=== PATIENT | male | born 1965 | race Caucasian/White ===

== ENCOUNTER 2016-06-05 14:06 | Observation (INO) | payer OTHER ==
[~2016-06-05] VITALS: Ht 170.2 cm; Wt 67.8 kg
[~2016-06-05 14:06] MED LIST: ASPI81TA81; AZEL1SPR2 EACH NARE; CALC600T10 PO; CARI350T20 PO; CITA10TA4 PO; CLON1TAB PO; ELVI1TAB3 PO; MELO-1 PO; MORP1TAB24 PO; MORP1TAB25 PO; REME15TA PO; SIMV40TA PO; TRIL135C PO
[2016-07-17] MEDS ORDERED: LACTATED RINGER'S 1000 ML IV SCH (06:45)
[2016-07-17] MEDS ORDERED: METOPROLOL TARTRATE 25 MG TAB PO PRN (06:45)
[2016-07-17] MEDS ORDERED: INSULIN HUMAN REGULAR 1,000 UNITS/10 ML VIAL SQ PRN (06:45)
[2016-07-17] MEDS ORDERED: SODIUM CHLORID 0.9% 500 ML IV SCH (06:45)
[2016-07-17 06:56] VITALS: BP 102/84; PULSE 89; RESP 20; TEMP 98.9; O2SAT 95
[2016-07-17] MEDS ORDERED: RESP: ALBUTEROL 2.5 MG/3 ML NEB (PRN) ONE (08:04)
[2016-07-17] MEDS ORDERED: MIDAZOLAM HCL 2 MG/2 ML VIAL ONE (08:43)
[2016-07-17] MEDS ORDERED: FAMOTIDINE 20 MG/2 ML VIAL ONE (08:43)
[2016-07-17] MEDS ORDERED: fentaNYL CITRATE 250 MCG/5 ML AMP ONE ×2 (08:43→16:45)
[2016-07-17] MEDS ORDERED: ARTIFICIAL TEARS OPTH OINT 3.5 APPLIC/3.5 GM TUBO ONE (08:43)
[2016-07-17] MEDS ORDERED: MICROFIBRILLAR COLLAGEN HEMOSTAT 70 X 35 MM BANDAGE ONE (08:52)
[2016-07-17] MEDS ORDERED: ceFAZolin 2 GM PREMIX 50 ML ONE (08:52)
[2016-07-17] MEDS ORDERED: VANCOMYCIN HCL 1000 MG VIAL ONE (08:52)
[2016-07-17] MEDS ORDERED: THROMBIN (TOPICAL) 5,000 UNIT VIAL ONE (08:52)
[2016-07-17] MEDS ORDERED: GELFOAM SIZE 100 ONE (08:52)
[2016-07-17] MEDS ORDERED: ACETAMINOPHEN 1000 MG/100 ML VIAL IV ONE (08:53)
[2016-07-17] MEDS ORDERED: SODIUM CHLOR 0.9% 250 ML INJ 250 ML ONE (08:53)
[2016-07-17] MEDS ORDERED: GENTAMICIN SULFATE 80 MG/2 ML VIAL ONE (08:53)
[2016-07-17] MEDS ORDERED: CYCLOBENZAPRINE HCL 10 MG TAB PO PRN (09:45)
[2016-07-17] MEDS ORDERED: ONDANSETRON HCL 4 MG/2 ML VIAL IV PRN (09:45)
[2016-07-17] MEDS ORDERED: MENTHOL LOZENGE SUCK-ON PRN (09:45)
[2016-07-17] MEDS ORDERED: BISACODYL 10 MG SUPP PR PRN (09:45)
[2016-07-17] MEDS ORDERED: SODIUM CHLORIDE 0.9% FLUSH 5 ML FLUSH IVF PRN (09:45)
[2016-07-17] MEDS ORDERED: CARISOPRODOL 350 MG TAB PO PRN (09:45)
[2016-07-17] MEDS ORDERED: ACETAMINOPHEN/HYDROcodone 325 MG/10 MG TAB PO PRN ×2 (09:45)
[2016-07-17] MEDS ORDERED: ACETAMINOPHEN 325 MG TAB PO PRN (09:45)
[2016-07-17] MEDS ORDERED: MORPHINE SULFATE 4 MG/ML INJ IV PUSH PRN ×2 (09:45)
[2016-07-17] MEDS ORDERED: *RESP: ALBUTEROL 2.5 MG/3 ML NEB (PRN) PERIprocedural Use ONLY NEB ONE (11:50)
--- NOTE | 2016-07-17 11:52 | RADRPT ---
EXAM DATE/TIME: 07/17/2016 09:17 [facility] COMPARISON: No previous studies available for comparison. INDICATIONS : Post-op C5-C6 disk arthroplasty. MEDICAL HISTORY : None. SURGICAL HISTORY : None. ENCOUNTER: Initial ACUITY: 1 day PAIN SCORE: Non-responsive. LOCATION: neck FINDINGS: Disc arthroplasty is present at the C5-C6 level. The vertebral bodies are normal in alignment on the lateral view. CONCLUSION: 1. Postsurgical changes as above. Ean Noland MD on July 17, 2016 at 11:50 Board Certified Radiologist. This report was verified electronically.
--- NOTE | 2016-07-17 11:52 | RADRPT ---
EXAM DATE/TIME: 07/17/2016 09:17 [facility] COMPARISON: No previous studies available for comparison. INDICATIONS : C5-C6 disk arthroplasty. Level localization. MEDICAL HISTORY : None. SURGICAL HISTORY : None. ENCOUNTER: Initial ACUITY: 1 day PAIN SCORE: Non-responsive. LOCATION: neck FINDINGS: FINDINGS: Single lateral view of the spine demonstrates the spine to be in anatomic alignment. A probe is in pl lilian at the C5-C6 level. CONCLUSION: 1. Postsurgical changes as above. Ean Noland MD on July 17, 2016 at 11:51 Board Certified Radiologist. This report was verified electronically.
[2016-07-17] MEDS ORDERED: ONDANSETRON HCL 4 MG/2 ML VIAL IV PUSH ONE (12:00)
[2016-07-17] MEDS ORDERED: LACTATED RINGER'S 1000 ML INJ 1,000 ML IV ONE (12:00)
[2016-07-17] MEDS ORDERED: ePHEDrine/NS 50 MG/5 ML SYR IV ONE (12:00)
[2016-07-17] MEDS ORDERED: NEOSTIGMINE 3 MG/3 ML SYR IV ONE (12:00)
[2016-07-17] MEDS ORDERED: PROPOFOL 200 MG/20 ML AMP IV ONE (12:00)
[2016-07-17] MEDS ORDERED: PHENYLEPH/NS 1000 MCG/10 ML SYR IV ONE (12:00)
[2016-07-17] MEDS ORDERED: *MEPERIDINE 25 MG INJ VIAL PERIprocedural Use ONLY ONE (12:02)
[2016-07-17] MEDS ORDERED: PILL SPLITTER OTHER PRN (12:15)
[2016-07-17] MEDS ORDERED: *morphine SULFATE 8 MG/ML PERIprocedure ONLY ONE ×3 (12:18→13:46)
[2016-07-17] MEDS: NS + KCL 20 MEQ INJ 1,000 ML IV SCH (12:24)
--- NOTE | 2016-07-17 12:44 | PD.OP ---
Operative Report Date of Surgery: Jul 17, 2016 Preoperative Diagnosis: C5-6 cervical disk herniation Postoperative Diagnosis: C5-6 cervical disk herniation Procedure: C5-6 anterior cervical discectomy and arthroplasty using Mobi C Anesthesia: general Surgeon: Eliezer Burgos Clinical Support Specialist(s): Saundra Ford Operation and Findings: INDICATIONS FOR THE PROCEDURE Mr Cochran is a 50 year-old who presented with intractable neck pain and a C6 cervical radiculopathy. She was found to have a large disc herniation at C5-6, causing significant mass effect on the nerve root. She has failed multiple modalities of nonsurgical treatment and has a very poor quality of life and her symptoms were affecting her quality of life. An anterior cervical discectomy and arthroplasty were indicated. The [id number] details of the surgical procedure, indications, alternatives, risks and potential complications were fully discussed with the patient. The patient fully understood. All her questions were answered. No guarantees were given. She voiced requesting the procedure and signed informed consents. She was offered the alternative of delaying the procedure and continuing with nonsurgical management. DETAILS OF THE SURGICAL PROCEDURE SURGICAL APPROACH A skin incision was made along the middle cervical crease with a #10 blade. The dissection was carried out through the platysma exposing the sternocleidomastoid muscle. The cervical spine was approached following the fascial layers of the neck, just medial to the anterior border of the sternocleidomastoid and carotid sheath by a combination of sharp and dull dissection. The omohyoid muscle was identified and carefully dissected laterally and the deep cervical fascia was carefully opened. The longus colli muscles were retracted to each side of the midline. A marker was placed at the C5-6 disc space and a cross-table lateral x-ray performed with a C-arm. An AP xray was then obtained as well, and the midline of the disk space was defined. SURGICAL DECOMPRESSION In order to decompress the anterior surface of the spinal cord it was necessary to perform a microsurgical resection of the disk. At this point in the procedure the operating microscope was draped in the usual sterile fashion and brought to the field. The rest of the surgical procedure was performed using microdissection technique with the exception of the closure. Under the operative microscopic a self-retaining retractor was placed underneath the longus colli muscle. The annulus at C5-6 was incised with a #15 blade and microdiscectomy was then carefully carried out using angled curets and pituitary forceps. The patient had a large disk extrusion which was producing mass affect on the exiting nerve root. This was carefully dissected with a nerve hock and resected with a think foot plate 2 mm Kerrison under high magnification. The posterior longitudinal ligament was then elevated with an angled curet and incised with a 15 bladed knife. A careful resection of the posterior longitudinal ligament was carried out using a thin footplate 2 mm Kerrison. Extruded disk fragments causing mechanical compression were carefully dissected. The decompression was then carried out laterally, and a bilateral foraminotomy was performed with a 2 mm thin foot Kerrison. The epidural space was the systematically assessed with a nerve hook in search for disk fragments of scar tissue. An excellent decompression was achieved in both, the dural sac and bilateral exiting nerve roots. The incision was then irrigated with a large amount of antibiotic solution INTERBODY ARTHROPLASTY In order to avoid collapse of the disk space which would result in bilateral foraminal stenosis, and in order to maintain disk space height and function minimally development of adjacent level degeneration, it was necessary to place an interbody device. At this point of the procedure, gentle distraction was applied. The size of the interbody device was then assessed using a trial, and a cross table xray was done for confirmation of appropriate size and position of the device. Then the disk space was irrigated with antibiotic solution, and a 15mm by 6mm Mobi C artificial disk was carefully impacted into the disc space C5-6. An excellent position of the device was achieved. This was confirmed anatomically by feeling the space posterior to the implant and distance to the anterior surface of the dural sac. Radiological confirmation of the position was performed with a cross table AP and lateral X-ray views, performed with the C-arm. COMPLETION OF THE SURGICAL PROCEDURE Once that each interbody device was in an appropriate position, the distraction was discontinued. The position of the device as well as alignment of the spine were assessed anatomically by direct visualization, and radiologically by performing an AP and lateral X-ray of the cervical spine with the C-arm. The position of the implant was excellent. The incision was irrigated with several liters of antibiotic solution. Hemostasis was achieved with a bipolar. A 7 mm Travis-Bañuelos drain was left in the prevertebral space and externalized through a separate stab incision. The incision was then closed in layers. 3-0 Vicryl with interrupted sutures was used to close the platysma and subcutaneous tissue. The skin was closed with 4- 0 running subcuticular Vicryl and Dermabond was applied to the skin. The drain was secured with a 3-0 nylon. At the end of the procedure the sponge, needle and instrument counts were all correct. The estimated blood loss was less than 40-50 cc. No blood transfusion was given. No intraoperative complications occurred. The patient received prophylactic antibiotics. The patient was then extubated and transferred to the recovery room in stable condition. Eliezer Burgos MD Jul 17, 2016 12:44
[2016-07-17] MEDS ORDERED: DO NOT ADM ANY ANTICOAGULANT DRUGS XX PRN (13:15)
[2016-07-17] MEDS: DEXAMETHASONE SOD PHOS 4 MG/ML VIAL IV SCH ×2 (14:17→22:48)
[2016-07-17 16:00] VITALS: BP 120/79; PULSE 80; RESP 16; TEMP 95.7; O2SAT 92
[2016-07-17] MEDS: PCA - TOTAL MG DILAUDID DELIVERED PER SHIFT SCH ×2 (16:30→22:00)
[2016-07-17] MEDS ORDERED: NALOXONE HCL 0.4 MG/ML AMP IV PRN (16:30)
[2016-07-17] MEDS ORDERED: diphenhydrAMINE HCL 50 MG/ML VIAL IV PRN (16:30)
[2016-07-17] MEDS: ceFAZolin 2 GM PREMIX 50 ML IV SCH (17:49)
[2016-07-17] MEDS: NICOTINE 21 MG/24 HR PATCH TD SCH (17:51)
[2016-07-17] MEDS: HYDROmorphone HCL PCA 6 MG/30 ML IV SCH (18:17)
[2016-07-17 19:00] VITALS: BP 122/80; PULSE 94; RESP 16; TEMP 96.7; O2SAT 95
[2016-07-17] MEDS ORDERED: PRAVASTATIN SOD 80 MG TAB PO SCH (21:00)
[2016-07-17] MEDS ORDERED: MIRTAZAPINE 15 MG TAB PO SCH (21:00)
[2016-07-17] MEDS ORDERED: REMOVE OLD NICODERM (NICOTINE) PATCH TD SCH (21:00)
[2016-07-17] MEDS: DOCUSATE SODIUM 100 MG CAP PO SCH (22:46)
[2016-07-17] MEDS: clonazePAM 1 MG TAB PO SCH (22:46)
[2016-07-17] MEDS: SODIUM CHLORIDE 0.9% FLUSH 5 ML FLUSH IVF SCH (22:48)
[2016-07-17 23:45] VITALS: BP 125/85; PULSE 90; RESP 17; TEMP 96.6; O2SAT 94
[2016-07-18] MEDS: ceFAZolin 2 GM PREMIX 50 ML IV SCH ×2 (02:34→07:31)
[2016-07-18] MEDS: DEXAMETHASONE SOD PHOS 4 MG/ML VIAL IV SCH (02:34)
[2016-07-18] MEDS: NS + KCL 20 MEQ INJ 1,000 ML IV SCH (03:06)
[2016-07-18] MEDS: HYDROmorphone HCL PCA 6 MG/30 ML IV SCH (03:48)
[2016-07-18 04:34] VITALS: BP 140/86; PULSE 88; RESP 16; TEMP 97; O2SAT 97
[2016-07-18] MEDS: clonazePAM 1 MG TAB PO SCH (07:29)
[2016-07-18] MEDS: DOCUSATE SODIUM 100 MG CAP PO SCH (07:30)
[2016-07-18] MEDS: NICOTINE 21 MG/24 HR PATCH TD SCH (07:31)
[2016-07-18] MEDS: SODIUM CHLORIDE 0.9% FLUSH 5 ML FLUSH IVF SCH (07:31)
[2016-07-18 08:00] VITALS: BP 136/86; PULSE 83; RESP 18; TEMP 96.8; O2SAT 94
[2016-07-18] MEDS ORDERED: MORPHINE SULFATE 15 MG CONTROLLED RELEASE TAB PO SCH (08:00)
[2016-07-18] MEDS ORDERED: [UNRECOGNIZED DRUG - OTHER] PO SCH (09:00)
[2016-07-18] MEDS ORDERED: DOCUSATE SODIUM 100 MG CAP PO SCH (09:00)
[2016-07-18] MEDS ORDERED: MORPHINE SULFATE 30 MG CONTROLLED RELEASE TAB PO SCH ×3 (09:00→20:00)
[2016-07-18] MEDS ORDERED: FENOFIBRATE 145 MG TAB PO SCH (09:00)
[2016-07-18] MEDS ORDERED: CITALOPRAM HYDROBROMIDE 20 MG TAB PO SCH (09:00)
[2016-07-18] MEDS ORDERED: PANTOPRAZOLE SOD 40 MG DELAYED RELEASE TAB PO SCH (09:00)
--- NOTE | 2016-07-20 11:19 | HHI.DS ---
Radha William 07/20/16 1119: Discharge Summary Admission Date Jul 17, 2016 at 06:09 Discharge Date: Jul 18, 2016 Admitting Diagnosis s/p ACD arthroplasty (1) S/P cervical discectomy Brief History Ms. Cochran is a 50 year-old who presented with intractable neck pain and a C6 cervical radiculopathy. She was found to have a large disc herniation at C5-6, causing significant mass effect on the nerve root. She has failed multiple modalities of nonsurgical treatment and has a very poor quality of life and her symptoms were affecting her quality of life. An anterior cervical discectomy and arthroplasty were indicated. Imaging Last Impressions Cervical Spine X-Ray 07/17/16 0000 Signed Impressions: Service Date/Time: Sunday, July 17, 2016 09:17 - CONCLUSION: 1. Postsurgical changes as above. Ean Noland MD Hospital Course Ms. Cochran underwent a C5-6 anterior cervical discectomy and arthroplasty using Mobi C on Jul 17, 2016. Her surgery went well without complications and she was discharged home in stable conditions. Discharge Instructions DIET: Follow Instructions for: Heart Healthy Diet ADDITIONAL Diet Instructions: soft foods and advance as tolerated ACTIVITIES You can perform: Weight Bearing As Edgar ADDITIONAL Activity Instructio: Avoid strenuous activities, heavy lifting, overhead activities, repetitive bending, twisting, pushing, pulling or any activities which might result in stress over the spine. Avoid situtation that will put at risk for falls. Use assistive device as needed for walking. Wear cervical collar at all times, may remove only with meals. Continued Medications: Aspirin DR (Aspir-81) 81 Mg Tabdr Azelastine Nasal [place] (Azelastine Nasal [place]) Unknown Strength [place] Unknown Dose EACH NARE BID Allergies #1 Ref 0 BOTTLE Calcium Carbonate-Cholecalciferol (Calcium + D3) Unknown Strength Tab Unknown Dose PO BID TAB Carisoprodol (Carisoprodol) 350 Mg Tab 350 MG PO QID PRN PAIN #0 Ref [address] (Trilipix) 135 Mg Capdr 135 MG PO DAILY #30 Ref 0 CAP Citalopram (Citalopram) 10 Mg Tab 10 MG PO DAILY Control Depression #30 Ref 0 TAB Clonazepam (Clonazepam) 1 Mg Tab 1 MG PO BID #60 Ref 0 TAB Agcivgorubbz-Nymnimiefd-Oclhkimsqkqv-Tenofvir (Genvoya) [phone] Mg Tab 1 TAB PO DAILY Mgmt Viral Infection #30 Ref 0 TAB Meloxicam (Meloxicam) 15 Mg Tab 15 MG PO DAILY Arthritis Pain #30 Ref 0 TAB Mirtazapine (Remeron) 15 Mg Tab 15 MG PO HS Depression Control #30 Ref 0 TAB Morphine ER (Morphine ER) 30 Mg Tab 30 MG PO DAILY Pain Management Ref 0 TAB Morphine ER (Morphine ER) 15 Mg Tab 15 MG PO DAILY Pain Management Ref 0 TAB Simvastatin (Simvastatin) 40 Mg Tab 40 MG PO HS Cholesterol Management #30 Ref 0 TAB Eliezer Burgos MD 07/23/16 1432: Discharge Summary Pt Condition on Discharge: Good Discharge Disposition: Discharge Home Discharge Instructions DIET: Follow Instructions for: As Tolerated, No Restrictions Continued Medications: Aspirin DR (Aspir-81) 81 Mg Tabdr Azelastine Nasal [place] (Azelastine Nasal [place]) Unknown Strength [place] Unknown Dose EACH NARE BID Allergies #1 Ref 0 BOTTLE Calcium Carbonate-Cholecalciferol (Calcium + D3) Unknown Strength Tab Unknown Dose PO BID TAB Carisoprodol (Carisoprodol) 350 Mg Tab 350 MG PO QID PRN PAIN #0 Ref [address] (Trilipix) 135 Mg Capdr 135 MG PO DAILY #30 Ref 0 CAP Citalopram (Citalopram) 10 Mg Tab 10 MG PO DAILY Control Depression #30 Ref 0 TAB Clonazepam (Clonazepam) 1 Mg Tab 1 MG PO BID #60 Ref 0 TAB Xroewqvmmirm-Qlaudwhuft-Phoqtdevvgse-Tenofvir (Genvoya) [phone] Mg Tab 1 TAB PO DAILY Mgmt Viral Infection #30 Ref 0 TAB Meloxicam (Meloxicam) 15 Mg Tab 15 MG PO DAILY Arthritis Pain #30 Ref 0 TAB Mirtazapine (Remeron) 15 Mg Tab 15 MG PO HS Depression Control #30 Ref 0 TAB Morphine ER (Morphine ER) 30 Mg Tab 30 MG PO DAILY Pain Management Ref 0 TAB Morphine ER (Morphine ER) 15 Mg Tab 15 MG PO DAILY Pain Management Ref 0 TAB Simvastatin (Simvastatin) 40 Mg Tab 40 MG PO HS Cholesterol Management #30 Ref 0 TAB Radha William Jul 20, 2016 11:19 Eliezer Burgos MD Jul 23, 2016 14:32
[2016-09-28] MEDS ORDERED: D200CAP PO (17:08)
[2016-09-28] MEDS ORDERED: THERA TAB (17:08)
== END 2016-07-18 10:59 | disposition home or self-care (01) ==
LOC: INTOOBSV 07-17 06:09 → HSDI 07-17 06:09 → N06B 07-17 14:52
PROVIDERS: ADMIT Neurological Surgery; ATTEND Neurological Surgery
DX: M50.20 Other cervical disc displacement, unspecified cervical region (principal); M50.122 Cervical disc disorder at C5-C6 level with radiculopathy; J44.9 Chronic obstructive pulmonary disease, unspecified
CPT/HCPCS: 00600; 22551; 22856; 72020; 72040; 76000; 94150; 94640; 94664; 97163; C1713; G0378; J0131; J0690; J1100; J1170; J1580; J2175; J2250; J2270; J2370; J2405; J2710; J3010; J3370; J3480; J7050; J7120; J7613; L0150; L0172

== ENCOUNTER 2017-05-26 06:35 | Observation (INO) | payer OTHER ==
[~2017-05-26] VITALS: Ht 170.2 cm; Wt 72.3 kg
[~2017-05-26 06:35] MED LIST changes: -ASPI81TA81; +ASPI81TA81 PO; -CALC600T10 PO; -CARI350T20 PO; -MELO-1 PO; +MELO15TA20 PO; +SOMA350T PO
[2017-05-26] MEDS: ceFAZolin 2 GM PREMIX 0 ML ONE ×2 (07:20→08:01)
[2017-05-26] MEDS ORDERED: THROMBIN (TOPICAL) 5,000 UNIT VIAL ONE (07:20)
[2017-05-26] MEDS ORDERED: BUPIVACAINE/EPINEPHRINE 0.5% PF 30 ML VIAL ONE (07:20)
[2017-05-26] MEDS ORDERED: GENTAMICIN SULFATE 80 MG/2 ML VIAL ONE (07:20)
[2017-05-26] MEDS ORDERED: methylPREDNISolone ACETATE 40 MG/ML VIAL ONE (07:20)
[2017-05-26] MEDS ORDERED: GELFOAM SIZE 100 ONE (07:20)
[2017-05-26] MEDS ORDERED: ARTIFICIAL TEARS OPTH OINT 3.5 APPLIC/3.5 GM TUBO ONE (07:30)
[2017-05-26] MEDS ORDERED: CHLORHEXIDINE GLUCONATE 2 % 1 PACK (2 CLOTHS) TOPICAL PRN (07:30)
[2017-05-26] MEDS ORDERED: METOPROLOL TARTRATE 25 MG TAB PO PRN (07:30)
[2017-05-26] MEDS ORDERED: SODIUM CHLORID 0.9% 500 ML IV PRN (07:30)
[2017-05-26] MEDS ORDERED: POVIDONE IODINE 5% (ANTISEPSIS KIT) 4 APPLICATIONS EACH NARE PRN (07:30)
[2017-05-26] MEDS ORDERED: ceFAZolin 2 GM PREMIX 50 ML IV SCH (07:30)
[2017-05-26] MEDS ORDERED: ACETAMINOPHEN 1000 MG/100 ML 0 ML IV ONE (07:30)
[2017-05-26] MEDS: LACTATED RINGER'S 1000 ML IV PRN ×2 (08:00→19:56)
[2017-05-26] MEDS ORDERED: MORPHINE SULFATE 4 MG/ML INJ ONE (08:13)
[2017-05-26] MEDS ORDERED: HYDROmorphone HCL PF 2 MG/ML VIAL ONE (08:13)
[2017-05-26 09:37] LABS: MRSA PCR NEGATIVE (NEGATIVE); STAPH AUREUS PCR NEGATIVE (NEGATIVE)
[2017-05-26] MEDS ORDERED: MORPHINE SULFATE 4 MG/ML INJ IV PUSH PRN (10:30)
[2017-05-26] MEDS ORDERED: ACETAMINOPHEN 325 MG TAB PO PRN (10:30)
[2017-05-26] MEDS ORDERED: ACETAMINOPHEN/HYDROcodone 325 MG/10 MG TAB PO PRN (10:30)
[2017-05-26] MEDS ORDERED: HYDR-3583 PO (10:34)
--- NOTE | 2017-05-26 10:41 | PD.OP ---
Operative Report Date of Surgery: May 26, 2017 Preoperative Diagnosis: lumbar spondylosis and stenosis Postoperative Diagnosis: lumbar spondylosis and stenosis Procedure: Left L4-5 hemilaminectomy, mesiofacetectomy, foraminotomy, microsurgical resection of the disk Anesthesia: general Surgeon: Eliezer Burgos Professor Of Literacy(s): Saundra Ford Operation and Findings: INDICATIONS FOR THE SURGICAL PROCEDURE Mr Cochran is a 51 year-old male who presented with intractable mechanical back pain and clinical evidence of L5 lower extremity radiculopathy. He was found to have significant lumbar spondylosis and spinal stenosis with significant mass effect on the neural structures which correlated with the clinical symptoms. He failed maximum nonsurgical management including multiple modalities of conservative treatment as well as pain management interventions by an interventional pain specialist. A surgical decompression was indicated as a last resort. The gptq-eo-dmwl details of the procedure, indications, alternatives, risks and potential complications were fully discussed with the patient. The patient fully understood. All the questions were answered. No guarantees were given. The patient voiced requesting the procedure and provided informed consents. The patient was offered the alternative of delaying the procedure and continuing with nonsurgical management. DETAILS OF THE SURGICAL PROCEDURE After the induction of general anesthesia, endotracheal intubation was performed. A Verma catheter, bilateral STARR hose and sequential compression devices were placed and kept throughout the procedure. The patient was positioned prone on a Travis table over a Nathan frame. All pressure points were carefully padded with eggcrate mattress. The eyes were tapped shut after ointment was applied by the anesthesiologist to prevent corneal abrasion. A Sudeep hugger was placed over the exposed lower body to maintain control of the core body temperature. The lower lumbar region was prepped and draped in the usual sterile fashion. A spinal needle was placed for localization and an x- ray performed with a C-arm. A skin incision was made in the midline over the spinous processes L4-L5 with a #10 blade. Small subcutaneous bleeders were controlled with a bipolar and the dissection was carried out through the lumbar fascia exposing the spinous processes L4-L5. A subperiostial dissection was performed with a Long elevator and a Bovie over the left L4-L5 spinous process lamina and facets. A microdiscectomy self-retaining retractor was placed on the incision and an x- ray was obtained with an instrument placed underneath the lamina of L4. At this point in the procedure the operating microscope was draped in the usual sterile fashion and brought to the field. The rest of the surgical procedure was performed using microsurgical dissection technique with exception of the closure. Once the level was confirmed, a left decompressive laminectomy was performed at L4-L5 using the TPS drill with an 4mm drill bit. A medial facetectomy was performed and the superior free border of the ligamentum flavum was dissected with a ligament dissector and removed with a thin footplate 2 mm Kerrison. The medial facetectomy was done and the L5 nerve root was identified and followed towards its exit in the foramen. Epidural veins located laterally to the dural sac were coagulated with a bipolar and incised with microscissors. Gentle medial retraction of the dural sac allowed inspection of the disc space. The patient had severe facet arthropathy with hypertrhopy of the joint facets and ligamentum flavum resulting in mass effect over the dural sac and nerve roots. In addition, there was a broad-based disc protusion, contributing to the stenosis. The annulus fibrosus of the disc was coagulated with the bipolar and incised with an 11 blade. The disc was carefully dissected from the surrounding tissue and removed with pituitary forceps. Then, a microdiscectomy was carried out in the standard fashion using straight and up-biting pituitary forceps. A good decompression of the dural sac and nerve root was achieved. The exit of the nerve root was inspected for residual disc fragments and hemostasis was secured with the bipolar. The incision was irrigated with a large amount of saline solution. A Valsalva maneuver failed to show any cerebrospinal fluid leak or bleeding. The decompression was assessed again and found to be satisfactory. The incision was then closed in layers. The fascia was closed with 0 Vicryl sutures in an interrupted fashion. The superficial fascia was closed with 0 Vicryl sutures. The fascia was infiltrated with 0.5% Marcaine with epinephrine 1:100,000 dilution. The subcutaneous tissue was irrigated then closed with 0 Vicryl and 3 -0 Vicryl. The skin was closed with 4-0 running subcuticular Vicryl. A sterile dressing was applied. At the end of the procedure, the sponge, needle and instrument counts were all correct. Estimated blood loss was less than 50 cc. No blood transfusion was given. No intraoperative complications occurred. The patient received prophylactic antibiotics. The patient was then extubated and transferred to the recovery room in stable condition. Eliezer Burgos MD May 26, 2017 10:41
[2017-05-26] MEDS ORDERED: DO NOT ADM ANY ANTICOAGULANT DRUGS PRN (11:02)
--- NOTE | 2017-05-26 11:04 | RADRPT ---
EXAM DATE/TIME: 05/26/2017 09:31 [facility] COMPARISON: No previous studies available for comparison. INDICATIONS : L4-L5 laminectomy, lower back pain. MEDICAL HISTORY : None. SURGICAL HISTORY : None. ENCOUNTER: Initial ACUITY: 1 day PAIN SCORE: Non-responsive. LOCATION: lumbar spine FINDINGS: Probe directed at L4-5 interspace. CONCLUSION: L4-5 interspace. Arnol Capps MD FACR on May 26, 2017 at 11:01 Board Certified Radiologist. This report was verified electronically.
[2017-05-26] MEDS ORDERED: *MEPERIDINE 25 MG INJ VIAL PERIprocedural Use ONLY ONE (11:05)
[2017-05-26] MEDS ORDERED: *morphine SULFATE 8 MG/ML PERIprocedure ONLY ONE ×2 (11:08→11:34)
[2017-05-26] MEDS: NS + KCL 20 MEQ INJ 1,000 ML IV SCH ×2 (11:20→21:38)
[2017-05-26] MEDS ORDERED: *RESP: ALBUTEROL 2.5 MG/3 ML NEB (PRN) PERIprocedural Use ONLY NEB ONE (11:52)
[2017-05-26] MEDS ORDERED: ONDANSETRON HCL 4 MG/2 ML VIAL IV PUSH ONE (12:00)
[2017-05-26] MEDS ORDERED: PHENYLEPH/NS 1000 MCG/10 ML SYR IV ONE (12:00)
[2017-05-26] MEDS ORDERED: ESMOLOL HCL 100 MG/10 ML VIAL IV ONE (12:00)
[2017-05-26] MEDS ORDERED: MIDAZOLAM HCL 2 MG/2 ML VIAL IV ONE (12:00)
[2017-05-26] MEDS ORDERED: PROPOFOL 200 MG/20 ML AMP IV ONE (12:00)
[2017-05-26] MEDS ORDERED: NEOSTIGMINE 3 MG/3 ML SYR IV ONE (12:00)
[2017-05-26] MEDS ORDERED: LACTATED RINGER'S 1000 ML INJ 1,000 ML IV ONE (12:00)
[2017-05-26] MEDS ORDERED: ROCURONIUM INJ 50 MG/5 ML SYRINGE IV PUSH ONE (12:00)
[2017-05-26] MEDS ORDERED: DEXAMETHASONE SOD PHOS 4 MG/ML VIAL IV ONE (12:00)
[2017-05-26] MEDS ORDERED: GLYCOPYRROLATE 1 MG/5 ML SYRINGE IV PUSH ONE (12:00)
[2017-05-26] MEDS: MORPHINE SULFATE 4 MG/ML INJ IV PUSH PRN ×5 (12:45→23:41)
[2017-05-26] MEDS: ceFAZolin 2 GM PREMIX 50 ML IV SCH ×2 (16:06→23:45)
[2017-05-26] MEDS: ACETAMINOPHEN/HYDROcodone 325 MG/10 MG TAB PO PRN ×2 (17:23→21:39)
[2017-05-26] MEDS: NICOTINE 21 MG/24 HR PATCH T-DERMAL SCH (17:27)
[2017-05-26 18:41] VITALS: BP 126/77; PULSE 65; RESP 18; TEMP 97.7; O2SAT 97
[2017-05-26] MEDS: DOCUSATE SODIUM 100 MG CAP PO SCH (20:08)
[2017-05-26 20:30] VITALS: BP 129/67; PULSE 94; RESP 17; TEMP 97.5; O2SAT 94
[2017-05-27 00:30] VITALS: BP 117/67; PULSE 89; RESP 17; TEMP 97.4; O2SAT 95
[2017-05-27 05:00] VITALS: BP 124/79; PULSE 82; RESP 17; TEMP 97.6; O2SAT 98
[2017-05-27] MEDS: ACETAMINOPHEN/HYDROcodone 325 MG/10 MG TAB PO PRN ×2 (05:11→09:22)
[2017-05-27] MEDS: NS + KCL 20 MEQ INJ 1,000 ML IV SCH (05:12)
[2017-05-27] MEDS: MORPHINE SULFATE 4 MG/ML INJ IV PUSH PRN ×3 (05:12→10:39)
[2017-05-27] MEDS: ceFAZolin 2 GM PREMIX 50 ML IV SCH (07:17)
[2017-05-27 08:00] VITALS: BP 129/65; PULSE 85; RESP 20; TEMP 98.1; O2SAT 95
[2017-05-27] MEDS: DOCUSATE SODIUM 100 MG CAP PO SCH (08:40)
[2017-05-27] MEDS: NICOTINE 21 MG/24 HR PATCH T-DERMAL SCH (08:41)
[2017-05-27] MEDS ORDERED: PANTOPRAZOLE SOD 40 MG DELAYED RELEASE TAB PO SCH (09:00)
[2017-05-27] MEDS ORDERED: REMOVE OLD PATCH T-DERMAL SCH (09:00)
--- NOTE | 2017-05-27 10:11 | HHI.NSPN ---
History Chief Complaint: Incisional back pain. Interval History 05/27/17: Pt awake and alert. Complains of incisional back pain. Pt intermittently with pain radiating into the left leg and foot. Pt ambulating short distance with a rolling walker. Voiding. Review of Systems General: Negative for: fever, chills, insomnia Respiratory: Negative for: shortness of breath, cough, sputum Cardiovascular: Negative for: chest pain Gastrointestinal: Negative for: nausea, vomitting, diarrhea, constipation Exam Results Vital Signs Date Time Temp Pulse Resp B/P (MAP) Pulse Ox O2 Delivery O2 Flow Rate FiO2 05/27/17 08:00 98.1 85 20 129/65 (86) 95 05/26/17 12:05 Room Air 05/26/17 11:05 2 Intake and Output 05/27/17 05/27/17 05/28/17 08:00 16:00 00:00 Intake Total 290 ml Balance 290 ml Physical Examination General: Pt resting in bed eating breakfast with stable vital signs Resp: CTA bilaterally Heart: NSR no murmurs Abd: Soft positive bs Skin: No cyanosis or erythema Muscle: Moves all 4 extremities. Ambulates short distances with rolling walker. Neuro: Pt awake and alert. Follows commands well. Speech clear and appropriate. Lab, Micro, Other Results Last Impressions Lumbar Spine X-Ray 05/26/17 0000 Signed Impressions: Service Date/Time: Friday, May 26, 2017 09:31 - CONCLUSION: L4-5 interspace. Arnol Capps MD FACR 05/27/17 05/27/17 05/28/17 15:00 23:00 07:00 Intake Total 50 ml Balance 50 ml IV Total 50 ml # Voids 1 Medical Decision Making Impression and Plan A: 51 y/o M s/p L4/L5 laminectomy P: D/C home Ambulate with rolling walker. Paddy Schofield May 27, 2017 10:11 am
--- NOTE | 2017-05-27 10:16 | HHI.FF ---
Face to Face Verification Diagnosis: (1) Degeneration of lumbar or lumbosacral intervertebral disc (2) DDD (degenerative disc disease), lumbar Physical Therapy Order: Evaluate and Treat, Improve ambulation, Strength and gait training Home Health Nursing Order: Wound care and dressing changes Nursing assessment with vital signs I have seen patient Whitney Cochran on 05/27/17. My clinical findings support the need for the requested home health care services because: Deconditioned w/ increased weakness High risk of falls I certify that my clinical findings support that this patient is homebound because: Unsteady gait/balance Unable to use public transportation Paddy Schofield May 27, 2017 10:16 am
[2017-05-27] MEDS ORDERED: WALKER WHEELS/F1 MIS (10:17)
[2017-05-27 10:50] VITALS: RESP 18
--- NOTE | 2017-05-28 14:49 | HHI.DS ---
Discharge Summary Admission Date May 26, 2017 at 14:47 Discharge Date: May 27, 2017 Admitting Diagnosis s/p lumbar laminectomy (1) S/P lumbar laminectomy ICD Code: Z98.890 - Other specified postprocedural states Brief History Mr Cochran is a 51 year-old male who presented with intractable mechanical back pain and clinical evidence of L5 lower extremity radiculopathy. He was found to have significant lumbar spondylosis and spinal stenosis with significant mass effect on the neural structures which correlated with the clinical symptoms. He failed maximum nonsurgical management including multiple modalities of conservative treatment as well as pain management interventions by an interventional pain specialist. A surgical decompression was indicated as a last resort. Significant Findings Laboratory Tests Test 05/26/17 07:24 Hospital Course Mr. Cochran underwent a left L4-5 hemilaminectomy, mesiofacetectomy, foraminotomy, microsurgical resection of the disk on May 26, 2017 for lumbar spondylosis and stenosis. His surgery went well without complications. He was discharged home in stable conditions. Pt Condition on Discharge: Stable Discharge Disposition: Disch w/ Home Health Serv Discharge Instructions DIET: Follow Instructions for: As Tolerated, No Restrictions ACTIVITIES You can perform: Weight Bearing As Edgar Activities to Avoid: Lifting/Bending, Prolonged Standing, Strenuous Activity, Bathing, Driving New Medications: Hydrocodone-Acetaminophen (Hydrocodone-Acetaminophen) 10-325 mg Tab 1 TAB PO Q12HR PRN for PAIN, #30 TAB 0 Refills Walker with Front Wheels (Walker with Front Wheels) 1 Mis Mis EA .ROUTE DIRECTED, #1 0 Refills Continued Medications: Azelastine Nasal [place] (Azelastine Nasal [place]) Unknown Strength [place] 1 SPRAY EACH NARE BID for Allergies, #1 BOTTLE 0 Refills Carisoprodol (Soma) 350 Mg Tab 350 MG PO QID PRN for PAIN, TAB [address] (Trilipix) 135 Mg Capdr 135 MG PO DAILY, #30 CAP 0 Refills Citalopram (Citalopram) 10 Mg Tab 10 MG PO DAILY for Control Depression, #30 TAB 0 Refills Clonazepam (Clonazepam) 1 Mg Tab 1 MG PO BID, #60 TAB 0 Refills Quphuvkhpwhx-Jcqytyuqvn-Hwaywzgqbbxm-Tenofvir (Genvoya) [id number] Mg Tab 1 TAB PO DAILY for Mgmt Viral Infection, #30 TAB 0 Refills Meloxicam (Meloxicam) 15 Mg Tab 15 MG PO DAILY for Arthritis Pain, #30 TAB 0 Refills Mirtazapine (Remeron) 15 Mg Tab 15 MG PO HS for Depression Control, #30 TAB 0 Refills Morphine ER (Morphine ER) 30 Mg Tab 30 MG PO TID for Pain Management, TAB 0 Refills Morphine ER (Morphine ER) 15 Mg Tab 15 MG PO DAILY for Pain Management, TAB 0 Refills Simvastatin (Simvastatin) 40 Mg Tab 40 MG PO HS for Cholesterol Management, #30 TAB 0 Refills Discontinued Medications: Aspirin (Aspir-81) 81 Mg Tabdr 81 MG PO DAILY Radha William May 28, 2017 14:49
== END 2017-05-27 12:29 | disposition home health service (06) ==
LOC: HSDC 06:35 → EDSTATUS 08:30 → HSDI 14:47 → N05A 15:11
PROVIDERS: ADMIT Neurological Surgery; ATTEND Neurological Surgery
DX: M47.816 Spondylosis without myelopathy or radiculopathy, lumbar region (principal); M48.061 Spinal stenosis, lumbar region without neurogenic claudication
CPT/HCPCS: 00630; 63030; 72020; 76000; 87640; 87641; 94150; 96365; 96375; 96376; 97162; G0378; G8987; G8988; J0690; J1030; J1100; J1580; J2175; J2250; J2270; J2370; J2405; J2710; J3010; J3480; J7120; J7613; L0627; J0131; J1170